=== PATIENT | male | born 1995 | race African-American/Black ===

== ENCOUNTER 2016-06-30 04:59 | Emergency (ER) | payer SELFPAY ==
[~2016-06-30] VITALS: Ht 175.3 cm; Wt 106.6 kg
[~2016-06-30 04:59] MED LIST: MOTRIN100 MG/5 M PO; NOHOMEMEDS
[2016-06-30 05:56] LABS: EOSINOPHIL (%) 0.8 % (0-5); EOSINOPHIL COUNT 0.1 K/uL (0-0.3); HEMATOCRIT 46.8 % (38.0-50.0); IMMATURE GRANULOCYTE (%) 0.1 % (0.0-0.7); INSTRUMENT ABS NEUTROPHIL CT 4.5 K/uL; LYMPHOCYTE COUNT 2.5 K/uL (1.0-2.8); MCHC 32.9 G/DL (30.0-36.0); MCV 88.1 FL (86-99); MEAN PLAT.VOLUME 10.8 uM^3 (9.0-12.4); MONOCYTE (%) 9.7 % (3-12); MONOCYTE COUNT 0.8 K/uL (0-0.8); NEUTROPHIL (%) 57.2 % (45-76); NEUTROPHIL COUNT 4.5 K/uL (1.8-6.4); PLATELET COUNT 232 K/uL (156-360); RBC DIS.WIDTH-SD 41.9 % (39-53); RED BLOOD COUNT 5.31 M/uL (4.00-5.50); WHITE BLOOD COUNT 7.9 K/uL (4.1-10.2)
[2016-06-30 06:08] LABS: CHLORIDE 106 mEq/L (99-109); POTASSIUM 4.3 mEq/L (3.7-5.4); SODIUM 142 mEq/L (136-147)
[2016-06-30 06:10] LABS: GLUCOSE 76 mg/dL (70-99)
[2016-06-30 06:11] LABS: ANION GAP 8 MEQ/L (2-14)
[2016-06-30 06:12] LABS: D-DIMER ELISA < 0.15 mg/L FEU (< 0.57)
[2016-06-30 06:14] LABS: GFR ESTIMATE (CALCULATED) > 59 mL/min/
[2016-06-30 06:15] LABS: UREA NITROGEN (BUN) 12 mg/dL (9-23)
[2016-06-30 06:16] LABS: TROP-I INTERPRETATION NEGATIVE; TROPONIN-I < 0.01 ng/mL (0.0-0.30)
[2016-06-30] MEDS ORDERED: MOTRIN800 MG PO (06:28)
[2016-06-30 06:37] VITALS: BP 117/75
== END 2016-06-30 06:38 | disposition home or self-care (01) ==
LOC: EME 04:59
PROVIDERS: Emergency Medicine
DX: R07.81 Pleurodynia (principal)
CPT/HCPCS: 71020; 80048; 84484; 85025; 85379; 93005; 99281; 99284